=== PATIENT | male | born 1950 | race Caucasian/White ===

== ENCOUNTER 2016-08-17 22:21 | Emergency (ER) | payer MEDICARE ==
[2016-08-17] MEDS ORDERED: LIDOCAINE 2% UROJECT 10 ML ONE (23:34)
== END 2016-08-18 01:11 | disposition home or self-care (01) ==
LOC: ED 22:21
DX: R33.9 Retention of urine, unspecified (principal); N40.0 Benign prostatic hyperplasia without lower urinary tract symptoms; I10 Essential (primary) hypertension; E11.8 Type 2 diabetes mellitus with unspecified complications; Z79.84 Long term (current) use of oral hypoglycemic drugs
CPT/HCPCS: 99283 ×2; 51702; A9270